=== PATIENT | male | born 2000 | race African-American/Black ===

== ENCOUNTER 2021-04-17 15:33 | Emergency (ER) | payer BC, MEDICAID ==
[~2021-04-17] VITALS: Ht 180.3 cm; Wt 63.0 kg
[2021-04-17 16:35] LABS: BASOPHILS % 0.4 % (0.0-2.0); EOSINOPHILS % 0.8 % (0.0-5.0); HEMATOCRIT. 41.7 % (42.0-52.0); HEMOGLOBIN. 14.3 g/dL (14.0-18.0); LYMPHOCYTES % 25.5 % (20.0-50.0); MEAN CORPUSCULAR HEMOGLOBIN 29.4 pg (28.0-32.0); MEAN CORPUSCULAR VOLUME 85.7 fL (80.0-94.0); MEAN PLATELET VOLUME 9.1 fl (7.4-10.4); MONOCYTES % 4.8 % (2.0-8.0); NEUTROPHILS % 68.5 % (40.0-76.0); PLATELET 148 x1000/uL (130-400); RED BLOOD CELL COUNT 4.87 mill/uL (4.7-6.1); RED CELL DISTRIBUTION WIDTH 13.2 % (11.6-14.6)
[2021-04-17 16:43] LABS: CHLORIDE 108 mEq/L (98-107)
[2021-04-17 16:44] LABS: INR 1.1
[2021-04-17 19:26] VITALS: BP 124/6
[2021-04-17 19:28] LABS: CLARITY URINE CLOUDY (CLEAR); COLOR URINE YELLOW (YELLOW); KETONES URINE NEGATIVE (NEGATIVE); LEUKOCYTE ESTERASE URINE NEGATIVE (NEGATIVE); NITRITE URINE NEGATIVE (NEGATIVE); OCCULT BLOOD URINE NEGATIVE (NEGATIVE); PROTEIN URINE NEGATIVE (NEGATIVE); UROBILINOGEN URINE 0.2 E.U./dL (0.2-1.0)
[2021-04-17] MEDS ORDERED: DOCUSATE SODIUM 100MG CAPSULE PO PRN (20:45)
[2021-04-17] MEDS ORDERED: ONDANSETRON HCL 4MG/2ML INJ IV PRN (20:45)
[2021-04-17] MEDS ORDERED: ACETAMINOPHEN 325MG TABLET PO PRN (20:45)
[2021-04-17] MEDS ORDERED: HYDROCODONE/ACETAMINOPHEN 5/325MG TABLET PO PRN (20:45)
[2021-04-17] MEDS ORDERED: IPRATROPIUM/ALBUTEROL 0.5-3(2.5)MG/3ML NEB NEB PRN (20:45)
[2021-04-17] MEDS ORDERED: CLONIDINE 0.1MG TABLET PO PRN (20:45)
[2021-04-17] MEDS ORDERED: IOHEXOL-300 100 ML BOTTLE ONE (23:00)
[2021-04-17 23:38] LABS: *AMPHETAMINES SCREEN URINE NEGATIVE (NEGATIVE)
[2021-04-17 23:39] LABS: *BARBITURATES SCREEN URINE NEGATIVE (NEGATIVE); *BENZODIAZEPINES SCREEN URINE NEGATIVE (NEGATIVE); *COCAINE SCREEN URINE NEGATIVE (NEGATIVE); METHADONE URINE SCREEN NEGATIVE (NEGATIVE); OPIATES URINE SCREEN NEGATIVE (NEGATIVE)
[2021-04-17 23:40] LABS: CANNABINOID URINE SCREEN PRESUMTIVE POSITIVE (NEGATIVE); PHENCYCLIDINE URINE SCREEN NEGATIVE (NEGATIVE)
== END 2021-04-17 20:49 | disposition left against medical advice (07) ==
LOC: ER 15:33 → CANRESERV 20:10 → ENRESERV 20:10 → ER 20:49 → CANBEDREQ 21:36
DX: R55 Syncope and collapse (principal); R41.82 Altered mental status, unspecified; V49.9XXA Car occupant (driver) (passenger) injured in unspecified traffic accident, initial encounter; Y93.9 Activity, unspecified; Y92.410 Unspecified street and highway as the place of occurrence of the external cause
CPT/HCPCS: 36415; 70450; 71260; 74177; 80053; 80305; 81003; 83690; 83880; 84484; 85018; 85025; 85610; 86850; 86900; 86901; 93005; 99285; Q9967

== ENCOUNTER 2021-10-21 14:36 | Emergency (ER) | payer BC, MEDICAID ==
[~2021-10-21] VITALS: Ht 182.9 cm; Wt 75.0 kg
[2021-10-21 15:19] VITALS: BP 111/74
== END 2021-10-21 18:55 | disposition left against medical advice (07) ==
LOC: ER 14:36
DX: Z53.21 Procedure and treatment not carried out due to patient leaving prior to being seen by health care provider (principal)

== ENCOUNTER 2022-05-30 13:07 | Emergency (ER) | payer BC, MEDICAID ==
[~2022-05-30] VITALS: Ht 182.9 cm; Wt 63.5 kg
[2022-05-30 13:08] VITALS: BP 125/66
[2022-05-30] MEDS ORDERED: VISCOUS LIDOCAINE 2% 15 ML UDC PO STA (13:18)
[2022-05-30] MEDS ORDERED: ONDANSETRON 4MG ODT PO STA (13:18)
[2022-05-30] MEDS ORDERED: MAGNESIUM/ALUMINUM HYDROXIDE/SIMETHICONE 30ML UDC PO STA (13:18)
[2022-05-30] MEDS ORDERED: ONDA4TAB11 PO (15:17)
== END 2022-05-30 15:27 | disposition home or self-care (01) ==
LOC: ER 13:07
DX: R10.13 Epigastric pain (principal)
CPT/HCPCS: 76700; 99284; Q0162

== ENCOUNTER 2023-03-30 03:36 | Emergency (ER) | payer BC, MEDICAID ==
[~2023-03-30] VITALS: Ht 180.3 cm; Wt 59.0 kg
[~2023-03-30 03:36] MED LIST: ONDA4TAB11 PO
[2023-03-30 04:22] LABS: BASOPHILS % 0.6 % (0.0-2.0); EOSINOPHILS % 4.6 % (0.0-5.0); HEMATOCRIT. 42.2 % (42.0-52.0); MEAN CORPUSCULAR HEMOGLOBIN 28.8 pg (28.0-32.0); MEAN CORPUSCULAR VOLUME 86.6 fL (80.0-94.0); MEAN PLATELET VOLUME 8.9 fl (7.4-10.4); MONOCYTES % 6.1 % (2.0-8.0); NEUTROPHILS % 36.7 % (40.0-76.0); PLATELET 150 x1000/uL (130-400); RED BLOOD CELL COUNT 4.87 mill/uL (4.7-6.1); RED CELL DISTRIBUTION WIDTH 13.2 % (11.6-14.6)
[2023-03-30 04:32] LABS: CHLORIDE 105 mEq/L (98-107)
[2023-03-30 04:33] LABS: INR 1.1; PARTIAL THROMBOPLASTIN TIME 26.5 sec (23.4-31.0); PROTHROMBIN TIME 11.7 sec (9.6-11.0)
[2023-03-30 08:05] VITALS: BP 127/80
== END 2023-03-30 08:20 | disposition home or self-care (01) ==
LOC: ER 03:36
DX: E86.0 Dehydration (principal); F10.129 Alcohol abuse with intoxication, unspecified; T40.715A Adverse effect of cannabis, initial encounter; X58.XXXA Exposure to other specified factors, initial encounter; Y90.9 Presence of alcohol in blood, level not specified
CPT/HCPCS: 36415; 71045; 80053; 83690; 83880; 84484; 85025; 85610; 85730; 93005; 99285; Z7610